=== PATIENT | female | born 1980 | race Caucasian/White ===

== ENCOUNTER → 2018-02-22 | Outpatient (CLI) | payer OTHER ==
[~2018-02-22] MED LIST: NATURAL IRON65 MG PO; VITAMIN C500 MG PO
== END ==
LOC: COL.RAD 08:30
DX: C54.1 Malignant neoplasm of endometrium (principal); J98.59 Other diseases of mediastinum, not elsewhere classified; Z90.49 Acquired absence of other specified parts of digestive tract
CPT/HCPCS: Q9967